=== PATIENT | male | born 1970 | race Caucasian/White ===

== ENCOUNTER 2017-03-29 13:31 | Day surgery (SDC) | payer BC ==
[~2017-03-29] VITALS: Ht 177.8 cm; Wt 113.4 kg
[~2017-03-29 13:31] MED LIST: ASPIRIN 81MG TA81 MG PO; CELEXA20 MG PO; LIPITOR20 MG PO; PROPRANOLOL HCL20 MG PO; TRILIPIX45 MG PO; ZYRTEC ALLERGY10 MG PO
[2017-03-29 13:56] VITALS: BP 137/85
[2017-03-29 14:03] VITALS: BP 137/85
[2017-03-29 14:04] VITALS: BP 153/93
--- NOTE | 2017-03-29 14:14 | Procedure Note ---
Procedure detail Date of procedure: 03/29/17 Anesthesiologist: Omid Kearns Complications: None Pre-procedure diagnosis: Degenerative disease lumbar spine. Disc bulge L4-5. Lumbar radiculopathy symptoms. Post-procedure diagnosis: Same. Indications for procedure: Very pleasant 46-year-old white male with chronic low back pain he describes as constant, dull, aching. Also RIGHT hip and leg pain. He rates the pain 7/10. Patient has been to physical therapy with minimal relief. Patient has tried nonsteroidal anti-inflammatory drugs with minimal relief. We discussed lumbar epidural steroid injection at the L4-5 level. His MRI shows degenerative disease lumbar spine with disc bulge at L4-5 and L5-S1. Patient presents today for lumbar epidural steroid injection L4-5 level. Procedure detail: Procedure: Lumbar epidural steroid injection under fluoroscopy Informed consent was obtained and the risks and benefits of the procedure were explained to the patient. The patient was taken to the procedure room and noninvasive monitors placed, including noninvasive blood pressure cuff and pulse oximeter. The back was viewed using C-arm Fluoroscopy and prepped using Betadine as a cleansing solution and the L4-L5 interspace was palpated. Skin and subcutaneous tissues were anesthetized using lidocaine 1.5% and a 25-gauge needle. After this, an 18-gauge Touhy epidural needle was placed into the L4-L5 interspace and advanced using fluoroscopic guidance and loss of resistance to air until the epidural space was encountered. After confirmation of needle placement in the epidural space, with dye, a solution containing lidocaine 1.5%, 4 mL and Depo-Medrol 80 mg were incrementally injected into the lumbar epidural space. The patient tolerated the procedure well with no complications. The patient was observed in the Pain Clinic and then discharged home neurologically intact. Plan and disposition: Patient was reevaluated tenderness post procedure. He's doing very well. He'll return to some pain clinic further evaluation. at 0267
[2017-03-29 14:30] VITALS: BP 130/93
== END 2017-03-29 14:30 | disposition home or self-care (01) ==
LOC: PM 13:31
PROC: 3E0R3BZ Introduction of Anesthetic Agent into Spinal Canal, Percutaneous Approach (ICD-10-PCS; principal; 2017-03-29)
PROC: 3E0R33Z Introduction of Anti-inflammatory into Spinal Canal, Percutaneous Approach (ICD-10-PCS; 2017-03-29)
DX: M51.16 Intervertebral disc disorders with radiculopathy, lumbar region (principal)
CPT/HCPCS: J1040; Q9966

== ENCOUNTER → 2017-04-25 | Outpatient (CLI) | payer BC ==
--- NOTE | 2017-04-25 14:12 | RADIOLOGY REPORT PS360 ---
MRI-L-SPINE W/O, MRI-3D RENDERING/MYELOGRAM HISTORY: Low back pain with numbness and tingling in the right lower extremity DDD LUMBAR SPINE ORDERING PHYSICIAN: PARAMJIT DOMINGUEZ CRNA PATIENT AGE: 46 years COMPARISON: 03/08/2017 TECHNIQUE: Standard multiplanar multiecho sequences are performed without contrast. 3-D MIP and myelographic images are also rendered and reviewed FINDINGS: There is normal alignment. The spinal cord ends at the T12-L1 level. T12-L1 and L1-L2 have an unremarkable appearance. L2-L3: Mild facet hypertrophic change. L3-L4: Mild facet and ligamentum flavum hypertrophic change. L4-L5: There is been interval development of a moderate to large size right pericentral disc herniation with superior extrusion. The disc extends superiorly for length of approximately 2.6 cm causing compromise of the right lateral recess resulting canal stenosis compressive upon the right L5 nerve root. In addition, there is bulging disc at L4-L5 with broad-based central disc protrusion as before. There is canal stenosis along with facet hypertrophy and severe bilateral lateral recess narrowing as before. L5-S1: Degenerative disc disease with type II endplate changes along with bulging disc and facet and ligamentum flavum hypertrophy with narrowing of the canal along with moderate bilateral lateral recess narrowing. This is also similar when compared to the previous exam. Small central disc protrusion also noted at this level unchanged slightly eccentric to the left. IMPRESSION: 1. Interval development of a moderate to large size right paracentral disc herniation at L4-5 with superior extrusion causing compression upon the right L5 nerve root and right lateral recess narrowing with canal stenosis. 2. Degenerative disc disease with bulging disc and broad-based central disc protrusions at L4-L5 and L5-S1. There is moderate canal stenosis at L4-L5 slightly worse and mild canal stenosis at L5-S1 unchanged
== END ==
LOC: RAD 12:52
DX: M51.36 Other intervertebral disc degeneration, lumbar region (principal)

== ENCOUNTER → 2017-06-21 | Day surgery (SDC) | payer BC ==
[~2017-06-21] VITALS: Ht 177.8 cm; Wt 113.4 kg
[~2017-06-21] MED LIST changes: +NABUMETONE25 GM PO; +ROBAXIN-750750 MG PO
[2017-06-21 15:01] VITALS: BP 152/93
[2017-06-21 15:23] VITALS: BP 104/78; BP 143/82; BP 152/93
--- NOTE | 2017-06-21 15:31 | Procedure Note ---
Procedure detail Date of procedure: 06/21/17 Anesthesiologist: Omid Kearns CRNA Complications: None Pre-procedure diagnosis: Degenerative disease lumbar spine. Lumbar disc bulge L4-5. Post-procedure diagnosis: Same. Indications for procedure: Very pleasant 46-year-old white obese male that comes to us for repeat lumbar epidural straight injection L4-5 level. Patient has had some moderate improvement terms her lumbar back pain as well as bilateral hip and leg pain with previous injections. However, patient is scheduled for lumbar discectomy on July 06. I'll give him a lumbar epidural steroid injection L4-5 level today to try to help him with pain control leading up to surgery. Procedure detail: Procedure: Lumbar epidural steroid injection under fluoroscopy Informed consent was obtained and the risks and benefits of the procedure were explained to the patient. The patient was taken to the procedure room and noninvasive monitors placed, including noninvasive blood pressure cuff and pulse oximeter. The back was viewed using C-arm Fluoroscopy and prepped using Betadine as a cleansing solution and the L4-L5 interspace was palpated. Skin and subcutaneous tissues were anesthetized using lidocaine 1.5% and a 25-gauge needle. After this, an 18-gauge Touhy epidural needle was placed into the L4-L5 interspace and advanced using fluoroscopic guidance and loss of resistance to air until the epidural space was encountered. After confirmation of needle placement in the epidural space, with dye, a solution containing lidocaine 1.5%, 4 mL and Depo-Medrol 80 mg were incrementally injected into the lumbar epidural space. The patient tolerated the procedure well with no complications. The patient was observed in the Pain Clinic and then discharged home neurologically intact. Plan and disposition: Patient was reevaluated 10 metastases post procedure. He is doing very well. He' ll return to see us as needed. at 0170
[2017-06-21 15:45] VITALS: BP 154/92
== END ==
LOC: PM 12:30
PROC: 3E0R3BZ Introduction of Anesthetic Agent into Spinal Canal, Percutaneous Approach (ICD-10-PCS; principal; 2017-06-21)
PROC: 3E0R33Z Introduction of Anti-inflammatory into Spinal Canal, Percutaneous Approach (ICD-10-PCS; 2017-06-21)
DX: M51.36 Other intervertebral disc degeneration, lumbar region (principal)
CPT/HCPCS: J1040; Q9966